=== PATIENT | female | born 1970 | race African-American/Black ===

== ENCOUNTER 2023-06-18 09:30 | Day surgery (SDC) | payer BC ==
[2023-06-12 16:10] VITALS: BMI 30.7
[2023-06-18] MEDS ORDERED: CEFAZOLIN 2 GM VIAL ONE (09:37)
[2023-06-18] MEDS ORDERED: Bupivacaine PF 0.5% 30 ML VIAL ONE (09:37)
[2023-06-18] MEDS ORDERED: Dexamethasone 4 mg/ml Vial ONE (10:58)
[2023-06-18] MEDS ORDERED: Midazolam HCl 2 mg/2 ml Vial ONE (10:58)
[2023-06-18] MEDS ORDERED: Ondansetron PF 4 MG/2 ML Vial ONE (10:58)
[2023-06-18] MEDS ORDERED: Lidocaine 2% PF 5 ML VIAL ONE (10:58)
[2023-06-18] MEDS ORDERED: fentaNYL 50 mcg/mL 1 mL Vial ONE (10:58)
[2023-06-18] MEDS ORDERED: PROPOFOL 20 ML ONE (10:58)
== END 2023-06-18 13:30 | disposition home or self-care (01) ==
LOC: CSHSDC 09:30
PROVIDERS: ATTEND Podiatrist Foot & Ankle Surgery
PROC: 0QSN04Z Reposition Right Metatarsal with Internal Fixation Device, Open Approach (ICD-10-PCS; principal; 2023-06-18)
DX: M20.11 Hallux valgus (acquired), right foot (principal)
CPT/HCPCS: C1713; C1769; J0665; J1100; J2001; J2250; J2405; J2704; J3010